=== PATIENT | female | born 1970 | race Caucasian/White ===

== ENCOUNTER 2018-05-01 10:12 | Emergency (ER) | payer OTHER ==
[~2018-05-01] VITALS: Ht 162.6 cm; Wt 84.4 kg
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
[2018-05-01] MEDS ORDERED: KETOROLAC TROMETHAMINE INJ 30 MG/ML VIAL ONE (10:47)
[2018-05-01] MEDS ORDERED: KETOROLAC TROMETHAMINE INJ 60 MG/2 ML VIAL IM ONE (11:00)
--- NOTE | 2018-05-01 11:08 | NUR ---
Patient discharged to home in stable condition. Written and verbal after care instructions given. Patient verbalizes understanding of instruction.
--- NOTE | 2018-05-01 11:20 | NUR ---
PT REQUEST TO KEEP THE ID BAND.
[2018-05-01 11:23] VITALS: BP 128/74
== END 2018-05-01 11:24 | disposition home or self-care (01) ==
LOC: ER 10:13
DX: S53.492A Other sprain of left elbow, initial encounter (principal); S70.02XA Contusion of left hip, initial encounter; K21.9 Gastro-esophageal reflux disease without esophagitis; F41.9 Anxiety disorder, unspecified; Z88.2 Allergy status to sulfonamides; V03.90XA Pedestrian on foot injured in collision with car, pick-up truck or van, unspecified whether traffic or nontraffic accident, initial encounter; Y93.89 Activity, other specified; Y92.488 Other paved roadways as the place of occurrence of the external cause; Y99.8 Other external cause status
CPT/HCPCS: A4606; J1885; Z7610

== ENCOUNTER 2018-05-02 17:20 | Emergency (ER) | payer OTHER ==
[~2018-05-02] VITALS: Ht 163.8 cm; Wt 83.5 kg
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
--- NOTE | 2018-05-02 17:55 | NUR ---
ALLYSSA PRECIADO AT BEDSIDE.
[2018-05-02] MEDS ORDERED: KETOROLAC TROMETHAMINE INJ 60 MG/2 ML VIAL IM ONE (18:00)
[2018-05-02] MEDS ORDERED: KETOROLAC TROMETHAMINE INJ 30 MG/ML VIAL ONE (18:01)
--- NOTE | 2018-05-02 18:28 | NUR ---
Patient discharged to home in stable condition. Written and verbal after care instructions given. Patient verbalizes understanding of instruction.
[2018-05-02 18:32] VITALS: BP 132/78
== END 2018-05-02 18:33 | disposition home or self-care (01) ==
LOC: ER 17:33
DX: S70.02XA Contusion of left hip, initial encounter (principal); M54.5 Low back pain; M25.532 Pain in left wrist; K21.9 Gastro-esophageal reflux disease without esophagitis; F41.9 Anxiety disorder, unspecified; Z88.2 Allergy status to sulfonamides; V03.90XA Pedestrian on foot injured in collision with car, pick-up truck or van, unspecified whether traffic or nontraffic accident, initial encounter; Y93.89 Activity, other specified; Y92.89 Other specified places as the place of occurrence of the external cause; Y99.8 Other external cause status
CPT/HCPCS: 96372; 99283; A4606; J1885; Z7610